=== PATIENT | female | born 1955 | race African-American/Black ===

== ENCOUNTER → 2017-08-13 | Day surgery (SDC) | payer OTHER ==
--- NOTE | 2017-08-15 16:53 | PATH ---
Cytology Non-Gynecological Report Patient Name: ILIA MONGE [facility]. Rec. #: [id number] /Age/Gender: 1955 (Age: 61) / F Account: [id number] Location: RADIOLOGY [facility] Taken: 08/13/2017 Received: 08/14/2017 Reported: 08/15/2017 Physicians: Ralf Goncalves M.D. Specimen(s) Received LEFT THYROID FNA Clinical History Left 4.25 x 2.88 x 2.93 cm Final Diagnosis THYROID, LEFT, FINE NEEDLE ASPIRATION: SATISFACTORY FOR EVALUATION [place] CATEGORY II: BENIGN (NO MALIGNANT CELLS IDENTIFIED) CYTOLOGIC FINDINGS ARE CONSISTENT WITH A BENIGN FOLLICULAR NODULE (ADENOMATOID NODULE) BENIGN FOLLICULAR CELLS, MACROPHAGES, HURTHLE CELLS AND COLLOID PRESENT. Comment: Recommend correlation with clinical findings and follow up as clinically indicated. Electronically Signed Dickson Ferguson M.D. Gross Description Received are eight direct smears, four of which are air-dried and Diff-Quik stained, and four of which are alcohol fixed and Pap stained. Also received is 15 ml of bloody formalin from which one cellblock is prepared.
== END | disposition home or self-care (01) ==
LOC: JRADIR 09:57
PROVIDERS: ATTEND Internal Medicine Endocrinology, Diabetes & Metabolism
PROC: 0G9G3ZX Drainage of Left Thyroid Gland Lobe, Percutaneous Approach, Diagnostic (ICD-10-PCS; principal; 2017-08-13)
PROC: BG44ZZZ Ultrasonography of Thyroid Gland (ICD-10-PCS; 2017-08-13)
DX: E04.1 Nontoxic single thyroid nodule (principal)
CPT/HCPCS: 76942; 88173; 88305-TC